=== PATIENT | male | born 1985 | race Caucasian/White ===

== ENCOUNTER 2020-05-11 18:30 | Emergency (ER) | payer BC ==
--- NOTE | 2020-05-11 19:07 | RAD ---
LEFT HAND: 05/11/20 Three views. HISTORY: Injury. Carpals appear normally aligned. Metacarpals and phalanges appear intact. MCP joints unremarkable. IMPRESSION: No acute findings. POS: [facility]
[2020-05-11] MEDS ORDERED: Bupivacaine 0.5% 10 ML VIAL ONE (19:14)
== END 2020-05-11 20:36 | disposition home or self-care (01) ==
LOC: ERS 18:30
DX: S60.413A Abrasion of left middle finger, initial encounter (principal); W31.89XA Contact with other specified machinery, initial encounter
CPT/HCPCS: J3490

== ENCOUNTER 2021-03-08 18:40 | Emergency (ER) | payer BC | END 2021-03-08 19:42 | disposition home or self-care (01) | LOC: ERS 18:40 | DX: M54.5 Low back pain (principal) | CPT/HCPCS: 99283 ==